=== PATIENT | male | born 1990 | race Caucasian/White ===

== ENCOUNTER 2016-04-24 06:15 | Emergency (ER) | payer MEDICAID ==
[2016-04-24] MEDS ORDERED: LIDOCAINE 1%-EPI 1:100000 20 ML MDV ONE (07:21)
[2016-04-24] MEDS ORDERED: LIDOCAINE 1%-EPI 1:100000 20 ML MDV SUBQ STA (07:42)
== END 2016-04-24 08:15 | disposition home or self-care (01) ==
DX: S61.511A Laceration without foreign body of right wrist, initial encounter (principal); W45.8XXA Other foreign body or object entering through skin, initial encounter

== ENCOUNTER 2020-08-25 16:24 | Emergency (ER) | payer MEDICAID, OTHER ==
[2020-08-25 17:03] LABS: BASOPHILS % (AUTO) 0.4 %; EOSINOPHILS # (AUTO) 0.3 10^3/uL (0.0-0.7); EOSINOPHILS % (AUTO) 3.3 %; HGB - HEMOGLOBIN 16.1 g/dL (14.0-18.0); LYMPHOCYTES # (AUTO) 2.8 10^3/uL (1.5-3.5); LYMPHOCYTES % (AUTO) 27.3 %; MEAN CORPUSCULAR HEMOGLOBIN 31.5 pg (27.0-31.0); MEAN PLATELET VOLUME 9.9 fL (7.4-11.4); MONOCYTES # (AUTO) 0.9 10^3/uL (0.0-1.0); MONOCYTES % (AUTO) 8.2 %; NEUTROPHILS # (AUTO) 6.2 10^3/uL (1.5-6.6); NEUTROPHILS % (AUTO) 60.4 %; PLT - PLATELET COUNT 332 10^3/uL (130-450); RED BLOOD COUNT 5.11 10^6/uL (4.70-6.10); RED CELL DISTRIBUTION WIDTH 12.5 % (12.0-15.0); WHITE BLOOD COUNT 10.3 x10^3/uL (4.8-10.8)
[2020-08-25 17:29] LABS: ALBUMIN/GLOBULIN RATIO 1.5 (1.0-2.2); BILIRUBIN,TOTAL 0.9 mg/dL (0.2-1.0); CALCIUM 9.7 mg/dL (8.5-10.3); CREATININE 0.9 mg/dL (0.6-1.2); POTASSIUM 3.7 mmol/L (3.5-5.0); TOTAL PROTEIN 8.4 g/dL (6.7-8.2)
--- NOTE | 2020-08-25 17:35 | XRAY Report ---
PROCEDURE: Chest 1 View X-Ray INDICATIONS: Chest pain TECHNIQUE: One view of the chest was acquired. COMPARISON: None FINDINGS: Surgical changes and devices: None. Lungs and pleura: No pleural effusions or pneumothorax. Lungs are clear. Mediastinum: Mediastinal contours appear normal. Heart size is normal. Bones and chest wall: No suspicious bony lesions. Overlying soft tissues appear unremarkable. IMPRESSION: No evidence acute pulmonary process. Reviewed by: Kushal Weber MD on 08/25/2020 4:34 PM [facility] Approved by: Kushal Weber MD on 08/25/2020 4:34 PM [facility] Station ID: [id number]
[2020-08-25 17:59] VITALS: BP 106/84
[2020-08-25] MEDS ORDERED: KETOROLAC 30 MG/ML VIAL IVP STA (18:00)
--- NOTE | 2020-08-25 18:03 | ED Physician Documentation ---
History of Present Illness - Stated complaint Stated Complaint: SOA/LT ARM/CP/NAUSEA - Chief complaint Chief Complaint: Cardiac - Additonal information Additional information: 30-year-old Male presents the emergency department for evaluation of chest and left arm pain. He reports that he was out shopping and was walking to his car when he began to develop a sharp chest pain. Shortly thereafter he noted a sharp radiating pain into his left arm. Some nausea no vomiting no diarrhea. He does report some pleuritic chest pain. No history of similar. No recent travel, no history of blood clots or cancer, no unilateral leg swelling, no recent surgery and or hormone use. He denies a history of hypertension but is modestly hypertensive here. He does smoke tobacco. Denies a family history of sudden or early cardiac . He takes no medicines prescribed by a physician. Review of Systems Constitutional: denies: Fever, Chills Eyes: reports: Reviewed and negative Ears: reports: Loss of hearing Nose: reports: Reviewed and negative Throat: reports: Reviewed and negative Cardiac: reports: Chest pain / pressure. denies: Palpitations, Pedal edema, Calf pain Respiratory: denies: Dyspnea, Cough GI: denies: Abdominal Pain, Nausea, Vomiting : denies: Dysuria, Frequency, Hesitancy Skin: reports: Rash Musculoskeletal: reports: Reviewed and negative PD PAST MEDICAL HISTORY - Past Medical History Past Medical History: Yes Cardiovascular: None Respiratory: None Neuro: None Endocrine/Autoimmune: None GI: None : None HEENT: None Psych: None Musculoskeletal: None Derm: None - Past Surgical History Past Surgical History: No - Present Medications Home Medications: Ambulatory Orders Medication Instructions Recorded Confirmed Cetirizine HCl/Pseudoephedrine 1 tab ORAL DAILY 08/25/20 08/25/20 [Zyrtec-D Tablet] - Allergies Allergies/Adverse Reactions: Allergies Allergy/AdvReac Type Severity Reaction Status Date / Time iodine Allergy Intermediate Respiratory Verified 08/25/20 16:37 - Social History Does the pt smoke?: Yes Smoking Status: Current every day smoker Does the pt drink ETOH?: Yes ETOH Use: Beer, Liquor Does the pt have substance abuse?: No - Immunizations Immunizations are current?: Yes Immunizations: TDAP current <10years - POLST Patient has POLST: No PD ED PE NORMAL - General General: Alert and oriented X 3, No acute distress - HEENT HEENT: PERRL - Neck Neck: Supple, no meningeal sign - Cardiac Cardiac: RRR, No murmur - Respiratory Respiratory: Clear bilaterally - Abdomen Abdomen: Normal bowel sounds, Soft, Non tender, Non distended - Back Back: No CVA TTP, No spinal TTP - Derm Derm: Normal color, Warm and dry, No rash - Extremities Extremities: No deformity, No tenderness to palpate, Normal ROM s pain, No edema - Neuro Neuro: Alert and oriented X 3, 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 No: Prolonged QT QRS: Normal Ischemia: Normal ST segments Compare to prior EKG: Old EKG unavailable Computer interpretation: Agree with computer - Labs Labs: Laboratory Tests 08/25/20 08/25/20 08/25/20 16:50 16:50 16:50 WBC 10.3 RBC 5.11 Hgb 16.1 Hct 46.0 MCV 90.0 MCH 31.5 H MCHC 35.0 RDW 12.5 Plt Count 332 MPV 9.9 Neut # (Auto) 6.2 Lymph # (Auto) 2.8 [place] # (Auto) 0.9 Eos # (Auto) 0.3 Baso # (Auto) 0.0 Absolute Nucleated RBC 0.00 Nucleated RBC % 0.0 Sodium 137 Potassium 3.7 Chloride 103 Carbon Dioxide 24 Anion Gap 10.0 BUN 14 Creatinine 0.9 Estimated GFR (MDRD) 98 Glucose 104 H Calcium 9.7 Total Bilirubin 0.9 AST 26 ALT 36 Alkaline Phosphatase 87 Troponin I High Sens 2.3 Total Protein 8.4 H Albumin 5.0 Globulin 3.4 Albumin/Globulin Ratio 1.5 Lipase 21 L PD MEDICAL DECISION MAKING - ED course Complexity details: reviewed results, re-evaluated patient, d/w patient, d/w family ED course: Well-appearing 30-year-old male presents the emergency department for evaluation of Acute onset chest pain that occurred when he was walking to his car. Briefly thereafter he noted that he had left arm pain especially at the elbow when he dangles his arm. No history of similar. He did report a pleuritic component to the chest pain but he is PERC and Wells criteria negative. Very low suspicion for PE. EKG is nonischemic. High- sensitivity troponin is negative. Chest x-ray without acute focal abnormalities. Screening labs and electrolytes are unremarkable. My suspicion for acute ACS in this gentleman is exceedingly low. Heart score is 1 His arm did continue to persist and ache here in the ER. But he had no neck pain and no findings of rigid cervical radiculopathy. 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 I have advised ibuprofen for discomfort. I have also advised he should follow closely with his primary care provider to discuss this ED visit for chest pain. If at any point his symptoms are worsening, he develop fevers has fainting episodes worsening symptoms please return immediately to the ER. Departure - Departure Disposition: Home, Self Care Clinical Impression: Chest pain Condition: Stable Record reviewed to determine appropriate education?: Yes Instructions: ED Chest Pain Noncardiac Ch Comments: You were seen in the ER today for evaluation of chest pain. Your screening labs, EKG chest x-ray and labs were all essentially unremarkable. It is important that you discuss this ED visit with your primary care doctor. If your symptoms are not improving you may benefit from referral for a stress test or echocardiogram. I suspect that the cause of the pain in the left arm is muscle strain. Please take ibuprofen at home with food 2-3 times a day. If your symptoms are worsening or you develop arm swelling or redness return immediately to the ER.
== END 2020-08-25 18:43 | disposition home or self-care (01) ==
LOC: ED 16:24
DX: R07.9 Chest pain, unspecified (principal); F17.200 Nicotine dependence, unspecified, uncomplicated
CPT/HCPCS: 36415; 80053; 83690; 84484; 85025; 93005; 96374; 99284